=== PATIENT | male | born 1955 | race Caucasian/White ===

== ENCOUNTER 2020-10-27 11:48 | Inpatient (IN) ==
[2020-10-27] MEDS ORDERED: 0.9 % Sodium Chloride 1,000 ML ONE (12:11)
[2020-10-27] MEDS ORDERED: Amiodarone Premix 150 MG/100 ML BAG IVPB ONE (12:14)
[2020-10-27] MEDS ORDERED: Amiodarone Premix 360 MG/200 ML BAG IVC ONE (12:14)
[2020-10-27] MEDS ORDERED: 0.9 % Sodium Chloride 1,000 ML IVC ONE (12:15)
[2020-10-27 12:50] LABS: INR 1.2; Prothrombin Time 14.2 Seconds (9.4-12.1)
[2020-10-27 12:53] LABS: Basophils # 0.1 K/mcL (0.0-0.2); Eosinophils # 0.1 K/mcL (0.0-0.6); Eosinophils % 2.1 %; Hematocrit 45.2 % (37.5-50.1); Hemoglobin 14.4 g/dL (12.9-16.9); Immature Granulocytes % 0.4 % (0-4); Lymphocytes # 0.9 K/mcL (0.6-4.6); Lymphocytes % 13.2 %; Mean Corpuscular HGB Conc 31.9 g/dL (31.6-35.5); Mean Corpuscular Hemoglobin 27.2 pg (28.0-33.3); Mean Corpuscular Volume 85.3 fL (83.0-100.0); Mean Platelet Volume 9.9 fL (9.4-12.4); Monocytes # 0.9 K/mcL (0.0-1.3); Monocytes % 12.9 %; Neutrophils # 4.8 K/mcL (1.6-8.9); Platelet Count 202 K/mcL (140-400); Red Cell Distribution Width 16.9 % (11.5-14.5); Segmented Neutrophils % 70.4 %; White Blood Count 6.8 K/mcL (4.3-11.1)
[2020-10-27 12:53] LABS: Activated Partial Thrombo Time 40.2 Seconds (26.0-36.0)
[2020-10-27] MEDS ORDERED: Nitroglycerin 0.4 MG TAB.SUBL SL ONE (13:18)
[2020-10-27] MEDS: Nitroglycerin 0.4 MG TAB.SUBL SL SCH ×3 (13:21→13:32)
[2020-10-27] MEDS ORDERED: Isovue-370 500 ML BOTTLE IVP ONE (13:23)
[2020-10-27 13:24] LABS: Calcium 9.6 mg/dL (8.6-10.3); Potassium 3.8 mEq/L (3.5-5.1); Troponin I 0.03 ng/mL (< 0.04)
[2020-10-27] MEDS ORDERED: methylPREDNISolone 125 MG/2 ML VIAL IVP ONE (13:24)
[2020-10-27] MEDS ORDERED: *HR* Metoprolol 5 MG/5 ML VIAL IVP ONE (13:33)
[2020-10-27] MEDS ORDERED: Furosemide 40 MG/4 ML VIAL IVP ONE (13:35)
[2020-10-27] MEDS ORDERED: Aspirin 325 MG TABLET PO ONE (14:05)
[2020-10-27] MEDS: Aspirin 81 MG TAB.CHEW PO SCH (14:30)
[2020-10-27] MEDS ORDERED: *HR* Heparin 5,000 UNIT/ML VIAL IVP ONE (14:31)
[2020-10-27] MEDS ORDERED: *HR* Heparin 5,000 UNIT/ML VIAL IVP PRN ×2 (14:31)
[2020-10-27] MEDS ORDERED: Heparin 25,000UNIT/250ML 1/2NS 25,000 UNIT/250 ML IV.SOLN IVC SCH (14:45)
[2020-10-27 15:23] LABS: Heparin anti-factor XA UFH < 0.04 IU/mL (0.30-0.70); INR 1.2; Prothrombin Time 14.1 Seconds (9.4-12.1)
[2020-10-27] MEDS ORDERED: Naloxone 0.4 MG/ML INJ IVP PRN (15:34)
[2020-10-27] MEDS ORDERED: Ondansetron 4 MG/2 ML VIAL IVP PRN (15:34)
[2020-10-27] MEDS: Amiodarone Premix 360 MG/200 ML BAG IVC SCH (19:18)
[2020-10-27] MEDS: Acetaminophen 325 MG TABLET PO PRN (21:48)
[2020-10-28 00:27] LABS: Basophils % 0.2 %; Hematocrit 45.9 % (37.5-50.1); Hemoglobin 14.5 g/dL (12.9-16.9); Immature Granulocytes % 0.6 % (0-4); Lymphocytes # 0.5 K/mcL (0.6-4.6); Lymphocytes % 9.4 %; Mean Corpuscular HGB Conc 31.6 g/dL (31.6-35.5); Mean Corpuscular Hemoglobin 26.9 pg (28.0-33.3); Mean Platelet Volume 9.1 fL (9.4-12.4); Monocytes # 0.1 K/mcL (0.0-1.3); Monocytes % 1.4 %; Neutrophils # 4.5 K/mcL (1.6-8.9); Platelet Count 183 K/mcL (140-400); Red Cell Distribution Width 17.2 % (11.5-14.5); Segmented Neutrophils % 88.4 %; White Blood Count 5.1 K/mcL (4.3-11.1)
[2020-10-28 00:34] LABS: INR 1.4; Prothrombin Time 15.5 Seconds (9.4-12.1)
[2020-10-28 00:44] LABS: Calcium 9.2 mg/dL (8.6-10.3); Chol/HDL Ratio 3.5 (0-4.9); Magnesium 2.4 mg/dL (1.6-2.6); Phosphorous 3.4 mg/dL (2.7-4.5); Potassium 4.8 mEq/L (3.5-5.1)
[2020-10-28] MEDS: Acetaminophen 325 MG TABLET PO PRN ×2 (03:49→19:09)
[2020-10-28] MEDS: Amiodarone Premix 360 MG/200 ML BAG IVC SCH (07:50)
[2020-10-28] MEDS: Aspirin 81 MG TAB.CHEW PO SCH (07:50)
[2020-10-28] MEDS ORDERED: hydrALAZINE 25 MG TABLET PO SCH (09:00)
[2020-10-28] MEDS ORDERED: Perflutren Lipid Microsphere 1.3 ML in 0.9 % Sodium Chloride 8.7 ML IVP PRN (10:44)
[2020-10-28 12:43] VITALS: TEMP 97.6
[2020-10-28] MEDS: *HR* Amiodarone 200 MG TABLET PO SCH ×2 (12:51→19:10)
[2020-10-28] MEDS ORDERED: methylPREDNISolone 125 MG/2 ML VIAL IVP ONE (13:13)
[2020-10-28] MEDS ORDERED: 0.9 % Sodium Chloride 2,000 ML ONE (13:22)
[2020-10-28] MEDS ORDERED: Heparin 1,000 UNITS/500 mL 500 ML ONE ×3 (13:22→18:33)
[2020-10-28] MEDS ORDERED: ISOVUE-370 200 ML INFUS..BTL ONE (13:23)
[2020-10-28] MEDS ORDERED: Nitroglycerin 1,000 MCG/5 ML VIAL IV ONE (13:23)
[2020-10-28] MEDS ORDERED: *HR* Heparin 10,000 UNIT/10 ML VIAL ONE ×2 (13:23→18:43)
[2020-10-28] MEDS ORDERED: *HR* FentaNYL (PF) 100 MCG/2 ML VIAL ONE (14:05)
[2020-10-28] MEDS ORDERED: *HR* Midazolam HCl 2 MG/2 ML VIAL ONE (14:05)
[2020-10-28] MEDS ORDERED: Tirofiban 12.5 MG/250ML 12.5 MG/250 ML BAG ONE (14:22)
[2020-10-28] MEDS ORDERED: Tirofiban 12.5 MG/250ML 12.5 MG/250 ML BAG IVC SCH (15:15)
[2020-10-28 16:52] VITALS: PULSE 60
[2020-10-28 17:20] VITALS: BP 115/69; O2SAT 99
== END 2020-10-28 23:28 | disposition short-term general hospital (02) | DRG 271 ==
LOC: EMEROOARM 11:48 → 2NENU 11:48 → OBSVTOIN 20:19 → 2NENU 22:15 → ICNU 10-28 20:42
PROVIDERS: ADMIT Internal Medicine; ATTEND Internal Medicine